=== PATIENT | male | born 1945 | race Caucasian/White ===

== ENCOUNTER 2018-04-30 15:45 | Inpatient (IN) | payer OTHER, MEDICARE ==
[~2018-04-30] VITALS: Ht 190.5 cm; Wt 76.4 kg
--- NOTE | ~2018-04-30 | PROC NOTE ---
[place], [place] PROCEDURE NOTE NAME: HOWARD ROMERO UNIT #: [id number] ROOM: 511 DOCTOR: GINA CAZARES MD,SHAMA BIRTHDATE: [birth year] DOS: 05/04/2018 PROCEDURE: Right-sided thoracentesis, ultrasound guidance. PREOPERATIVE DIAGNOSIS: Moderate to large right pleural effusion. POSTOPERATIVE DIAGNOSES: Removal of 1600 mL of mildly hemorrhagic pleural fluid from the right pleural space without any difficulty. COMPLICATIONS: None. Local anesthetic for the patient to use as lidocaine. PROCEDURE DESCRIPTION: Informed consent obtained. Thoracentesis was marked. Ultrasound, in the right posterior chest. The skin was cleaned with chlorhexidine solution. 1% lidocaine was administered in the skin and intercostal space. After administration of the local anesthetic after that the chlorhexidine solution. Sterile field was achieved. 1% lidocaine was administered in the skin intercostal space during administration of local anesthetic. The pleural space entered. Small amount of mildly hemorrhagic pleural fluid was aspirated in the syringe. After that small incision given in the skin, [place] thoracentesis catheter introduced through the incision into the right pleural space without any difficulty. A total of 1600 mL of pleural fluid was collected with the patient including the specimens for different testing. The procedure was well tolerated by the patient without difficulty. Chest x-ray done post-procedure was reviewed, marked reexpansion of the lung with resolution of pleural fluid without any pneumothorax. Small pleural fluid noted on the left side. Pleural fluid sent for all the appropriate testing. The testing will be monitored. No additional change in treatment will be necessary. SHAMA FUENTES MD CM:PROCNOTE:PROCEDURE NOTE [id number] SHAMA CAZARES MD
--- NOTE | ~2018-04-30 | PR ---
[place], [place] PROGRESS NOTE NAME: HOWARD ROMERO UNIT #: [id number] ROOM: 511 DOCTOR: GINA CAZARES MD,SHAMA BIRTHDATE: [birth year] DOS: 05/01/2018 SUBJECTIVE: The patient has been noted comfortable at this time, resting in the bed. He has been noted reduction in symptoms of shortness breath partially. The patient has a V/Q scan done this morning, was noted with multiple defects. The patient noted with intermittent probability for pulmonary embolism. He does have mild coughing without any sputum expectoration. Denies symptoms of chest pain or any hemoptysis. The patient denies symptoms of fever or chills. OBJECTIVE: VITAL SIGNS: The patient showed normal temperature, respiratory rate 20, heart rate 60, blood pressure 120/77. Pulse ox saturation on 8 liters canula 93% saturation. HEENT: Examination shows head was atraumatic. Eyes, nonicterus. NECK: Supple. CARDIOVASCULAR: S1, S2 is audible. LUNGS: The patient was noted without any wheezing or crackles. Breaths are noted mildly decreased bilaterally. ABDOMEN: Soft, nontender. EXTREMITIES: Shows bilateral 2+ pitting edema. LABORATORY DATA: The BMP for the patient, BUN 52, creatinine 1.86 noted today. CBC of the patient this morning were noted normal. The V/Q scan for the patient that was completed this morning was noted with multiple defect in the lungs bilaterally with finding consistent with intermediate probability for pulmonary embolism. IMPRESSION: 1. Possible pulmonary embolism should be considered and treated at the present time with current finding with abnormal V/Q scan for his reason of acute on chronic hypoxic respiratory failure with acute exacerbation of chronic obstructive pulmonary disease. 2. The patient with chronic anticoagulation noted Xarelto that might need to be changed to the full dose. Therapy or alternative treatment consideration. Bronchodilator to be continued. Titrate oxygen supplementation, maintain pulse oxygen 92% or greater. Usual care, other supportive therapy, plan of management care and other therapies. Additional treatment changes will be made for the patient based on progression of the illness. PLAN: Ultrasound of the lower extremity was ordered for this patient to assess the possibility of deep venous thrombosis because of persistent edema. [place], [place] PROGRESS NOTE NAME: HOWARD ROMERO UNIT #: [id number] ROOM: [facility] DOCTOR: SHAMA DILLARD MD BIRTHDATE: [birth year] SHAMA FUENTES MD CM:ARMINDA [phone] SHAMA CAZARES MD 05/30/18 0722 interface
--- NOTE | ~2018-04-30 | PR ---
[place], [place] PROGRESS NOTE NAME: HOWARD ROMERO UNIT #: [id number] ROOM: 511 DOCTOR: GINA CAZARES MD,SHAMA BIRTHDATE: [birth year] DOS: 05/04/2018 SUBJECTIVE: The patient was noted comfortable at this time, still noted symptoms of shortness of breath. Denies symptoms of chest pain or hemoptysis. Shortness breath still noted with exertion. He has been noted with a good amount of diuresis. Denies symptoms of abdominal pain, nausea or vomiting. Edema of the lower extremity has been slowly subsiding. Denies symptoms of headache or diplopia. Remaining systems were reviewed, they were noted all negative. OBJECTIVE: VITAL SIGNS: Normal temperature, respiratory rate 18, heart rate of 54-69, blood pressure 129/72-132/78. The pulse oxygen saturation was noted on 7 liters high flow nasal cannula 92% saturation. HEENT: Examination shows head was atraumatic. Eyes nonicterus. NECK: Supple. CARDIOVASCULAR: S1, S2 audible. LUNGS: Noted decreased breaths in lower portion of the lung bilaterally, greater in the right than the left side. ABDOMEN: Soft, nontender, and obese. EXTREMITIES: The patient noted resolving edema and resolution noted incomplete. VISIBLE SKIN: No lesions or rashes. MUSCULOSKELETAL: Without acute deformity. CENTRAL NERVOUS SYSTEM: Cranial nerves 2-12 intact. LABORATORY DATA: The renal function panel today, BUN 55, creatinine 1.61, glucose 102. CO2 37. CBC was noted essentially normal. IMPRESSION: The patient who has been currently noted with acute on chronic hypoxic respiratory failure, acute pulmonary embolism, congestive heart failure, bilateral pleural fluid, assessment for thoracentesis was planned for today. PLAN OF MANAGEMENT: The ultrasound of the chest was performed at bedside, moderate size right pleural fluid noted and small left pleural fluid. Thoracentesis will be done today. The anticoagulation remains on hold. Post-thoracentesis, the patient has been started on the treatment of acute pulmonary embolism with Eliquis 10 mg p.o. b.i.d. dosing. Other additional change in the treatment if necessary will be ordered after the completion of thoracentesis. Continue diuretic therapy. Other care, plan of management. [place], [place] PROGRESS NOTE NAME: HOWARD ROMERO UNIT #: [id number] ROOM: [facility] DOCTOR: SHAMA DILLARD MD BIRTHDATE: [birth year] SHAMA FUENTES MD CM:PNTRANS [phone] SHAMA CAZARES MD 05/04/18 1424 interface
--- NOTE | ~2018-04-30 | PR ---
[place], [place] PROGRESS NOTE NAME: HOWARD ROMERO UNIT #: [id number] ROOM: 511 DOCTOR: GINA CAZARES MD,SHAMA BIRTHDATE: [birth year] DOS: 05/02/2018 ADDENDUM Ultrasound of the lower extremity was ordered for this patient to assess the possibility of deep venous thrombosis because of persistent edema. SHAMA FUENTES MD CM:ARMINDA [phone] SHAMA CAZARES MD 05/02/18 2014 interface
--- NOTE | ~2018-04-30 | PR ---
[place], [place] PROGRESS [id number] UNIT #: [id number] ROOM: 511 DOCTOR: GINA CAZARES MD,SHAMA BIRTHDATE: [birth year] DOS: 05/05/2018 SUBJECTIVE: The patient was noted comfortable at this time, resting on the bed. He has a thoracentesis done yesterday was 1600 mL of pleural fluid were removed from the aeration of the right pleural space. He was continued on diuretic therapy. Reported reduction in symptoms of shortness of breath. No chest pain. Denies symptoms of abdominal pain, nausea or vomiting. Denies symptoms of any chest pain. The edema of the lower extremity continued to resolve progressively. Denies symptoms of headache or diplopia. Remaining systems were reviewed. They were noted all negative. He was started on the Eliquis yesterday loading dose for suspected current pulmonary embolism. OBJECTIVE: VITAL SIGNS: Normal temperature, respiratory rate 18, heart rate 70, blood pressure 128/67. The pulse oxygen saturation on 7 liters nasal cannula 96% saturation at the bedside. HEENT: Chronic obesity. NECK: Supple. CARDIOVASCULAR: S1, S2 is audible. LUNGS: Noted with improvement in air entry of the right lung. Decreased breath sounds on the left lung. Scattered crackles of the lungs. ABDOMEN: Soft and obese. EXTREMITIES: Resolving edema. LABORATORY DATA: Analysis of the pleural fluid yesterday was done. All the finding noted consistent with a transudative effusion. The pH of the fluid was noted at 7.38 with normal results. The CMP this morning, BUN 47, creatinine 1.54. CO2 39. The pleural fluid culture noted no bacterial growth. The Gram stain reported as many white blood cells, no organisms. The chest x-ray done this morning shows mild improvement in aeration of the lung on the right side with a small remaining pleural fluid on the left side. IMPRESSION: 1. Acute congestive heart failure with bilateral pleural fluid. Large fluid on the right side was removed, pending cytology. 2. Zzbux-ot-[id number] hypoxic respiratory failure. 3. Chronic obesity. 4. Obstructive sleep apnea disorder, nonadherence with the treatment. PLAN OF THERAPY: Continuation of the current plan of management at this time was in progress. Bronchodilators, oxygen supplementation. Continuation of the Eliquis for the pulmonary embolism management. Titrate oxygen supplementation, maintain pulse oxygen saturation 90% or greater. Continue diuretic therapy. Supportive care and other treatment plan of management. [place], [place] PROGRESS NOTE NAME: HOWARD ROMERO UNIT #: [id number] ROOM: [facility] DOCTOR: SHAMA DILLARD MD BIRTHDATE: [birth year] SHAMA FUENTES MD CM:PNTRANS [phone] SHAMA CAZARES MD 05/06/18 0449 interface
--- NOTE | ~2018-04-30 | EKG ---
[place], [place] ELECTROCARDIOGRAM REPORT NAME: HOWARD ROMERO UNIT #: [id number] ROOM: 511 DOCTOR: TATI DRAFT REPORT BIRTHDATE: [birth year] [facility] Test Date: 2018-04-30 Test Time: 16:03:15 Pat Name: HOWARD ROMERO Department: Room: 511 Gender: M [employer] Maker: Micaela Garber : 1945 Requested By: HIWOT CALVIN Order Number: [id number] Reading MD: Sangita Watt MD Measurements Intervals [place] Rate: 59 P: GA: QRS: 27 QRSD: 108 T: 31 QT: 462 QTc: 458 Interpretive Statements Atrial fibrillation Posterior infarct, age undetermined ST depression V1-V3, suggest recording posterior leads Baseline wander in lead(s) V3,V5 Electronically Signed On 05-03-2018 4:15:14 PDT by Sangita Watt MD CM:EKGRPT:ELECTROCARDIOGRAM REPORT [id number] HIWOT DUFFY DRAFT REPORT HIWOT CALVIN MD
--- NOTE | ~2018-04-30 | CON ---
[place], [place] REPORT OF CONSULTATION NAME: HOWARD ROMERO UNIT #: [id number] ROOM: 511 DOCTOR: GINA CAZARES MDSHAMA BIRTHDATE: [birth year] DOS: 05/01/2018 CONSULTATION REQUESTED BY: Hospitalist service. REASON FOR CONSULTATION: Assessment of respiratory failure. HISTORY OF PRESENT ILLNESS: A 72-year-old white male patient unknown to me. He has been followed up in the [facility]. The patient was seen in routine office follow up visit at the [facility] yesterday. He has been noted with pulse oxygen saturation only 60%. He was sent to the Emergency Room after starting the patient on oxygen supplementation by the EMS. The patient's oxygen saturation was noted in the 80s. The patient on 6 liters nasal cannula started nonrebreather mask. The patient to improve his oxygen saturation. The patient was noted with oxygen desaturation to take off his mask to eat. He has been reporting symptoms of shortness of breath that was occurring with exertion. The patient with progressive gradual weight gain and fluid retention. The patient does have mild cough without any sputum expectoration. Denies symptoms of chest pain. He does have symptoms of occasional wheezing. He stated that he brought his oxygen concentrator, which has been using at home up to 5 liters, which has been recently broke and he was in the process of purchasing a new oxygen concentrator. REVIEW OF SYSTEMS: CONSTITUTIONAL: Fatigue and tiredness noted without any symptoms of fever or chills. EYES: Denies any burning, redness, or tenderness. EARS, NOSE, THROAT SYMPTOMS: Denies sore throat, hoarseness, otalgia, postnasal drainage. CARDIOVASCULAR: Denies any angina pain noted with edema of the lower extremities. There are symptoms of pain. Denies symptoms of palpitations. GASTROINTESTINAL symptoms, dysphagia, nausea, vomiting, diarrhea, abdominal pain, hematemesis, melena, or hematochezia. SKIN: Denies abnormal lesions or rashes. CENTRAL NERVOUS SYSTEM: No dizziness, headache, diplopia, syncopal episodes. Remaining systems were reviewed with the patient, they were noted all negative. PAST MEDICAL HISTORY: 1. Reported by the patient with history of congestive heart failure. Systolic and diastolic dysfunction unknown. 2. History of pulmonary hypertension was also reported. Details were not known clearly by the patient. 3. New onset of atrial fibrillation noted on this admission. 4. Chronic obesity. 5. I am not sure for this patient about obstructive sleep apnea disorder, history was not noted clearly from the patient, but the patient reported possibility of sleep apnea disorder, but wished not to be treated with any of the machines. 6. History of chronic obstructive pulmonary disease. [place], [place] REPORT OF CONSULTATION NAME: HOWARD ROMERO UNIT #: [id number] ROOM: [facility] DOCTOR: SHAMA DILLARD MD BIRTHDATE: [birth year] 7. Gastroesophageal reflux. 8. Essential hypertension. 9. Chronic hypoxic respiratory failure, using oxygen supplementation up to 5 liters nasal cannula. PAST SURGICAL HISTORY: Reported with inguinal hernia repair. SOCIAL HISTORY: The patient lives at home by himself. Denies history of alcohol use, illicit drug use. Tobacco use noted, a pack of cigarettes a day; the patient discontinued a few years ago. The patient has history of chronic alcohol use. Denies history of illicit drugs. FAMILY HISTORY: The patient's father at the age of 70 due to complication of dementia. Mother at the age of 60 due to complication of COPD. HOME MEDICATIONS: Listed use of lisinopril, Symbicort, Ventolin HFA, omeprazole, Proventil HFA, nebulized bronchodilators albuterol sulfate, Lasix 20 mg daily, [place]-3 fish oil once a day, and aspirin 81 mg p.o. daily. DRUG ALLERGIES: Noted with no known drug allergies. PHYSICAL EXAMINATION: GENERAL: This is a 72-year-old white male, currently comfortably, sitting on the side of the bed without any acute distress. The patient's height was noted 6 feet 9 inches, weight of 295 pounds, BMI 36.8. VITAL SIGNS: Heart rate of 100 beats per minute to 45 beats per minute for the patient with atrial fibrillation, temperature noted normal, respiratory rate 18-20, heart rate of 140/87 to 121/78. The pulse oxygen saturation of the patient was recorded as 93% on 15 liter nasal cannula, currently on 8 liters high flow nasal cannula 92% saturation. HEENT: Examination shows head was atraumatic. Eyes nonicterus. NECK: Supple and obese. Severe decreased posterior pharyngeal space, high tongue base crowding of soft tissue structures. Oral mucosa was moist. CARDIOVASCULAR: S1, S2 audible. LUNGS: Decreased breath sounds noted in the lungs. Bilaterally scattered crackles of the lungs. The breaths are noted decreased more on the right than the left side. ABDOMEN: Noted severe chronic obesity. Bowel sounds present. It was nontender. EXTREMITIES: The patient noted with 2+ pitting edema in bilateral lower extremity. VISIBLE SKIN: No lesions or rashes. CENTRAL NERVOUS SYSTEM: Cranial nerves 2-12 intact. MUSCULOSKELETAL: Without any acute deformities. LABORATORY DATA: Arterial blood gas on 15 liters of oxygen, pH of 7.31, pCO2 of 53, pO2 of 98. The lactic acid 1.5 on admission yesterday. CBC yesterday on admission was essentially noted as normal CBC. CMP that was done yesterday, BUN 31, creatinine 1.54, remaining electrolytes normal. The troponin for the patient, which were done 3 sets was noted with troponin maximum 0.85 out of the [place], [place] REPORT OF CONSULTATION NAME: HOWARD ROMERO UNIT #: [id number] ROOM: [facility] DOCTOR: SHAMA DILLARD MD BIRTHDATE: [birth year] 3 sets. CBC for the patient on 05/01/2018 for patient remains still normal. BMP of the patient done this morning, glucose 147, BUN of 37, and creatinine 1.81. Potassium of 5.6. Calcium 8.1. Chest x-ray that was done one-view was only done was personally reviewed showed changes of congestive heart failure. Interstitial infiltration as well as area of atelectasis with elevation of right hemidiaphragm and pleural fluid on the right side cannot be completely excluded. IMPRESSION: 1. The patient will be currently admitted to the hospital noted with severe acute hypoxic respiratory failure with hypercarbia as well with chronic hypoxic respiratory failure as a result of superimposed congestive heart failure and pleural fluid with some area of atelectasis suspected and rule out chronic interstitial lung disease as well. 2. History reported was pulmonary hypertension, details unknown at the present time. 3. Morbid obesity. 4. Suspected strongly obstructive sleep apnea disorder, nonadherence with the treatment. Refusal of further treatment. 5. The patient with chronic obesity as well. 6. Past history of nicotine abuse. The patient's chronic obstructive pulmonary disease as well does not seem to have an acute exacerbation, mostly cardiac component. Would be considered for the current respiratory failure progression. 7. The patient with suspected acute kidney injury with possibly some chronic kidney disease with prerenal azotemia. PLAN OF MANAGEMENT: Ordered a PA lateral chest x-ray of the patient for tomorrow morning. Continue diuretic therapy. Continuation of the bronchodilators as well. Cardiology consultation has been already ordered in ED will follow the recommendation. Also obtain echocardiogram. Obtain the medical record for the patient from [facility] for this patient as well for the assessment of previous cardiac problem, pulmonary disease. Bronchodilator to be continued. The patient was also noted in atrial fibrillation with rapid ventricular response that has been currently treated with the medication including the patient was started on Xarelto. The dose of Solu-Medrol will be decreased 60 mg b.i.d. to only 30 mg daily at the present time. There was no need for any antibiotics as well. Additional treatment changes will be ordered for the patient based on progression of the illness. Monitor respiratory status closely if the patient found to have pleural fluid of significance of significant size then thoracentesis would be advised. The patient refused to use any kind of BiPAP for the patient for respiratory failure management. Titrate oxygen supplementation to maintain pulse oxygen saturation 90% or greater. The patient stated that he would like to be discharged within 24 hours and might not be staying in the hospital. Other plan of management and care for the patient to be continued as well. Usual care. Additional treatment changes will be ordered based on the progression of illness for this patient during this hospitalization. Also, monitor kidney function for the patient that the patient noted with acute on chronic kidney disease, most likely to diuretic possibly prerenal azotemia with congestive heart failure. [place], [place] REPORT OF CONSULTATION NAME: HOWARD ROMERO UNIT #: [id number] ROOM: 511 DOCTOR: SHAMA DILLARD MD BIRTHDATE: [birth year] SHAMA FUENTES MD CM:CONSTR:REPORT OF CONSULTATION 1141 05/30/18 0727 interface
--- NOTE | ~2018-04-30 | EKG ---
[place], [place] ELECTROCARDIOGRAM REPORT NAME: HOWARD ROMERO UNIT #: [id number] ROOM: 511 DOCTOR: TATI DRAFT REPORT BIRTHDATE: [birth year] [facility] Test Date: 2018-05-01 Test Time: 08:07:20 Pat Name: HOWARD ROMERO Department: Room: [facility] 2 Gender: M [employer] Operator: : 1945 Requested By: TUTU ROSADO Order Number: [id number] Reading MD: Sangita Watt MD Measurements Intervals [place] Rate: 41 P: AR: QRS: 20 QRSD: 116 T: QT: 463 QTc: 383 Interpretive Statements Atrial fibrillation Incomplete right bundle branch block R prominent in V2 suggestive posterior infarct age undetermined Borderline low voltage, extremity leads Baseline wander in lead(s) V1 Electronically Signed On 05-03-2018 4:17:48 PDT by Sangita Watt MD CM:EKGRPT:ELECTROCARDIOGRAM REPORT 0417 TUTU KOENIG DRAFT REPORT TUTU ROSADO DO
--- NOTE | ~2018-04-30 | PR ---
[place], [place] PROGRESS NOTE NAME: HOWARD ROMERO UNIT #: [id number] ROOM: 511 DOCTOR: SHAMA DILLARD MD BIRTHDATE: [birth year] DOS: 05/06/2018 SUBJECTIVE: The patient was noted comfortable at this time, resting in the bed. He had not been noted any ongoing acute respiratory complaints at this time. The patient was noted comfortable. He was noted very eager for the patient and wanting to be discharged home. Denies symptoms of chest pain. The patient has not been reporting any symptoms of fever or chills. Diuretic therapy for the patient was continued. PHYSICAL EXAMINATION: VITAL SIGNS: For the patient which are recorded showed normal temperature, respiratory rate 20, heart rate 65 and blood pressure 149/88. The pulse oxygen saturation patient on 7 liter nasal cannula was 91-92% saturation. HEENT: Examination shows head was atraumatic. Eyes nonicterus. NECK: Supple. CARDIOVASCULAR: S1, S2 is audible. LUNGS: Basilar crackles. ABDOMEN: Soft, obese and nontender. EXTREMITIES: The patient continued resolving edema of the lower extremities. LABORATORY DATA: BMP today: BUN 57 and creatinine 1.57. IMPRESSION: The patient with acute pulmonary embolism. The patient with resolving acute congestive heart failure, pleural fluid and respiratory failure gradually. PLAN OF THERAPY: From the pulmonary standpoint, the patient could be discharged home on home oxygen supplementation. The patient stated that he is normally using oxygen supplementation and maintaining his oxygen saturation about 88%-89%. Never had a pulse oxygen saturation more than that previously. Based on that, the patient could be discharged home oxygen 5-6 liter nasal cannula, probably should suffice. [facility] He will be finishing the total of 7 days of Eliquis. The patient loading dose since it started in this hospital and then could be started on Eliquis 5 mg p.o. b.i.d. for the medical and pulmonary embolism. [place], [place] PROGRESS NOTE NAME: HOWARD ROMERO UNIT #: [id number] ROOM: 511 DOCTOR: SHAMA DILLARD MD BIRTHDATE: [birth year] SHAMA FUENTES MD CM:PNTRANS [id number] SHAMA CAZARES MD 05/06/18 1040 interface
--- NOTE | ~2018-04-30 | PR ---
[place], [place] PROGRESS NOTE [id number] UN[facility] #: [id number] ROOM: 511 DOCTOR: GINA CAZARES MD,SHAMA BIRTHDATE: [birth year] DOS: 05/03/2018 SUBJECTIVE: The patient has been noted comfortable at this time. Shortness of breath was noted with partial reduction. Denies symptoms of chest pain or fever. The patient was still noted edema of the lower extremity, partially improved yesterday, but there was no pain. Denies symptoms of nausea, vomiting or diarrhea, but appeared to be quite comfortable this morning as compared with the previous day of assessment. Remaining systems were reviewed, they were noted all negative. OBJECTIVE: VITAL SIGNS: For the patient, which have been recorded showed normal temperature, respiratory rate 22, heart rate 48-84, respiratory rate recorded as 18-20, blood pressure 118/67-136/74. HEAD, EYES, EARS, NOSE, AND THROAT: Examination shows chronic moderate obesity. NECK: Supple. CARDIOVASCULAR SYSTEM: S1, S2 is audible. LUNGS: Noted without any wheezing or crackle. Breaths are noted decreased in the lower portion of the lungs bilaterally. ABDOMEN: Soft, nontender. Bowel sounds present. EXTREMITIES: Noted with 2+ pitting edema. MUSCULOSKELETAL: No deformity. CENTRAL NERVOUS SYSTEM: Cranial nerves 2-12 intact with the skin noted chronic changes of the lower extremities. There were no ulcers or lesions. LABORATORY DATA: Chest CT scan, which was ordered by the primary care team yesterday, was reviewed, shows bilateral pleural fluid, moderate size right and small to moderate, left pleural fluid area of compression atelectasis. Ultrasound of the lower extremity was also completed yesterday does not show any evidence of deep venous thrombosis. The PTT was noted as therapeutic today is 76. The patient has an echocardiogram that was done yesterday as well was reviewed with the findings reported by Dr. Watt, as left ventricle ejection fraction 55% at atrial fibrillation, right-sided pressure overload noted because flattening of the interventricular septum. Mild to moderate aortic stenosis with area of 1.8 cm2. Pulmonary artery pressure was also noted elevated as moderately. FINAL IMPRESSION: 1. The patient who has been currently noted with pulmonary embolism suspected strongly with concomitant ongoing congestive heart failure, diastolic dysfunction, and right-sided heart failure. 2. Moderate pulmonary hypertension with aortic stenosis as WHO classification at this time would be considered as a class 2, pulmonary hypertension related to the aortic valvular stenosis. 3. Suspected obstructive sleep apnea disorder. The patient does not wish to be treated for that as assessed in the history previously. 4. Chronic severe obesity as well. 5. Chronic obstructive pulmonary disease. 6. Atrial fibrillation. [place], [place] PROGRESS NOTE NAME: HOWARD ROMERO UNIT #: [id number] ROOM: 511 DOCTOR: GINA CAZARES MD,SHAMA BIRTHDATE: [birth year] PLAN OF MANAGEMENT: Continuation of the bronchodilators and oxygen supplementation and diuretic therapy. Assess patient tomorrow.. Discontinuation of the heparin for the assessment of pleural fluid thoracentesis to help improve his respiratory failure. The patient still requires 6-7 liters of oxygen, which is multifactorial, not only related to the pleural fluids. All other supportive therapy, plan of management, care plan, monitor electrolytes, BUN and creatinine, diuretic therapy. Usual care. SHAMA FUENTES MD CM:PNTRANS [id number] SHAMA CAZARES MD 05/30/18 0724 interface
[2018-04-30 15:46] VITALS: BP 152/85
[2018-04-30] MEDS ORDERED: ZESTRIL30 M3 PO (16:07)
[2018-04-30] MEDS ORDERED: SYMB160 INH (16:08)
[2018-04-30] MEDS ORDERED: VENTOLIN 02.5 MG/3 M INH (16:09)
[2018-04-30] MEDS ORDERED: PROVENTIL HFA6.7 GM INH (16:10)
[2018-04-30] MEDS ORDERED: OMEPRAZOLE20 M2 PO (16:11)
[2018-04-30] MEDS ORDERED: LASIX20 MG PO (16:11)
[2018-04-30] MEDS ORDERED: ASPIRIN CHEWABL81 MG PO (16:12)
[2018-04-30] MEDS ORDERED: FISH OIL CONC1000 M2 PO (16:12)
[2018-04-30] MEDS ORDERED: PHARMASSURE SA160 MG PO (16:12)
[2018-04-30 16:16] VITALS: BP 149/89
[2018-04-30 16:26] LABS: ABG BASE EXCESS -0.4 mmol/L (-2.0-2.0); ABG HCO3 26.2 mmol/l (22-26); ABG O2 SATURATION 95.1 % (95-97); ARTERIAL BLOOD GAS PCO2 53.4 mmHg (35-45); ARTERIAL BLOOD GAS PH 7.314 (7.35-7.45)
[2018-04-30 16:26] LABS: BASO % 0.4 % (0.0-1.0); EOS % 0.4 % (1.0-4.0); HEMOGLOBIN 15.3 g/dl (14.0-18.0); LYMPH % 12.9 % (27.0-41.0); MEAN CELL VOLUME 92.4 fl (80.0-94.0); MEAN CORPUSCULAR HGB 28.3 pg (27.0-31.0); MEAN CORPUSCULAR HGB CONC 30.6 g/dl (33.0-37.0); MEAN PLATELET VOLUME 11.1 fl (9.6-12.3); MONO # 0.8 10*3/uL (0.1-1.0); MONO % 9.8 % (3.0-9.0); NEUT # 6.1 10*3/uL (2.3-7.9); NEUT % 76.2 % (47.0-73.0); PLATELET COUNT AUTOMATED 168 10*3/uL (130-400); RED BLOOD COUNT 5.41 10*6/uL (4.50-5.90); RED CELL DISTRI WIDTH 15.2 % (0-14.5)
[2018-04-30 16:39] LABS: ACT PARTIAL THROMBO TIME 22.6 SECONDS (20.8-31.5); INTERNATIONAL NORM RATIO 1.2 (2.0-3.5)
[2018-04-30 16:42] LABS: ALBUMIN 3.3 gm/dl (3.1-4.5); CREATININE 1.54 mg/dL (0.70-1.30); POTASSIUM 4.7 mmol/L (3.5-5.1); TOTAL PROTEIN 6.8 gm/dL (6.4-8.2)
[2018-04-30 16:49] LABS: TROPONIN I 0.076 ng/ml (<0.045)
[2018-04-30 17:16] LABS: BILIRUBIN NEGATIVE (NEGATIVE); BLOOD TRACE-INTACT (NEGATIVE); CLARITY CLEAR (CLEAR); COLOR YELLOW (YELLOW); GLUCOSE NEGATIVE (NEGATIVE); KETONE NEGATIVE (NEGATIVE); LEUKO ESTERASE NEGATIVE (NEGATIVE); NITRITE NEGATIVE (NEGATIVE); PH 5.5 (5.0-9.0); SPECIFIC GRAVITY >= 1.030 (1.005-1.030); UROBILINOGEN 0.2 E.U./dl (0.2-1.0)
[2018-04-30 17:18] VITALS: BP 129/77
[2018-04-30 17:25] LABS: BACTERIA TRACE; EPITHELIAL CELLS 0-2; WBC 0-2 wbc/hpf (0-5)
[2018-04-30 18:00] VITALS: BP 140/87
[2018-04-30 20:00] VITALS: BP 129/84
[2018-05-01] VITALS: BP 106/53
[2018-05-01 06:50] LABS: BASO % 0.2 % (0.0-1.0); HEMATOCRIT 50.6 % (42.0-52.0); HEMOGLOBIN 15.1 g/dl (14.0-18.0); LYMPH # 0.6 10*3/uL (1.3-4.4); LYMPH % 11.6 % (27.0-41.0); MEAN CELL VOLUME 94.8 fl (80.0-94.0); MEAN CORPUSCULAR HGB 28.3 pg (27.0-31.0); MEAN CORPUSCULAR HGB CONC 29.8 g/dl (33.0-37.0); MEAN PLATELET VOLUME 11.4 fl (9.6-12.3); MONO # 0.2 10*3/uL (0.1-1.0); NEUT # 4.5 10*3/uL (2.3-7.9); PLATELET COUNT AUTOMATED 161 10*3/uL (130-400); RED BLOOD COUNT 5.34 10*6/uL (4.50-5.90); RED CELL DISTRI WIDTH 15.3 % (0-14.5); WHITE BLOOD COUNT 5.3 10*3/uL (4.8-10.8)
[2018-05-01 07:21] LABS: CREATININE 1.81 mg/dL (0.70-1.30); FREE T4 0.87 ng/dl (0.76-1.46); PHOSPHOROUS 5.2 mg/dL (2.5-4.9); POTASSIUM 5.6 mmol/L (3.5-5.1)
[2018-05-01 07:27] LABS: THYROID STIM HORMONE (HS) 1.38 uIU/ml (0.358-4.75)
[2018-05-01 08:00] VITALS: BP 122/78; BP 133/63
[2018-05-01 08:00] LABS: VITAMIN D, 25-HYDROXY 31.3 ng/mL (30-100)
[2018-05-01 16:00] VITALS: BP 128/72
[2018-05-01 20:00] VITALS: BP 142/76
[2018-05-02] VITALS: BP 103/62
[2018-05-02 07:20] LABS: BASO % 0.1 % (0.0-1.0); EOS % 0.1 % (1.0-4.0); HEMATOCRIT 51.1 % (42.0-52.0); HEMOGLOBIN 15.1 g/dl (14.0-18.0); LYMPH # 1.2 10*3/uL (1.3-4.4); LYMPH % 13.4 % (27.0-41.0); MEAN CELL VOLUME 94.3 fl (80.0-94.0); MEAN CORPUSCULAR HGB 27.9 pg (27.0-31.0); MEAN CORPUSCULAR HGB CONC 29.5 g/dl (33.0-37.0); MEAN PLATELET VOLUME 11.1 fl (9.6-12.3); MONO # 0.9 10*3/uL (0.1-1.0); MONO % 9.6 % (3.0-9.0); NEUT # 6.8 10*3/uL (2.3-7.9); NEUT % 76.5 % (47.0-73.0); PLATELET COUNT AUTOMATED 170 10*3/uL (130-400); RED BLOOD COUNT 5.42 10*6/uL (4.50-5.90); RED CELL DISTRI WIDTH 15.4 % (0-14.5); WHITE BLOOD COUNT 8.9 10*3/uL (4.8-10.8)
[2018-05-02 07:39] LABS: CREATININE 1.86 mg/dL (0.70-1.30); PHOSPHOROUS 5.1 mg/dL (2.5-4.9); POTASSIUM 4.5 mmol/L (3.5-5.1)
[2018-05-02 08:00] VITALS: BP 120/77
[2018-05-02 12:00] VITALS: BP 128/77
[2018-05-02 16:00] VITALS: BP 142/75
[2018-05-02 20:00] VITALS: BP 136/74
[2018-05-03 01:38] VITALS: BP 118/67
[2018-05-03 08:20] LABS: ALBUMIN 3.6 gm/dl (3.1-4.5); CREATININE 1.66 mg/dL (0.70-1.30); PHOSPHOROUS 4.7 mg/dL (2.5-4.9); POTASSIUM 4.8 mmol/L (3.5-5.1)
[2018-05-03 12:00] VITALS: BP 119/83
[2018-05-03 16:00] VITALS: BP 139/74
[2018-05-03 20:00] VITALS: BP 124/55
[2018-05-04] VITALS: BP 129/72
[2018-05-04 06:26] LABS: BASO % 0.2 % (0.0-1.0); EOS % 0.2 % (1.0-4.0); HEMATOCRIT 49.3 % (42.0-52.0); HEMOGLOBIN 14.8 g/dl (14.0-18.0); LYMPH # 1.1 10*3/uL (1.3-4.4); LYMPH % 11.8 % (27.0-41.0); MEAN CELL VOLUME 93.2 fl (80.0-94.0); MEAN PLATELET VOLUME 11.3 fl (9.6-12.3); MONO # 1.1 10*3/uL (0.1-1.0); MONO % 11.5 % (3.0-9.0); NEUT # 7.3 10*3/uL (2.3-7.9); PLATELET COUNT AUTOMATED 187 10*3/uL (130-400); RED BLOOD COUNT 5.29 10*6/uL (4.50-5.90); RED CELL DISTRI WIDTH 15.1 % (0-14.5); WHITE BLOOD COUNT 9.6 10*3/uL (4.8-10.8)
[2018-05-04 06:47] LABS: ALBUMIN 3.4 gm/dl (3.1-4.5); CREATININE 1.61 mg/dL (0.70-1.30); PHOSPHOROUS 4.9 mg/dL (2.5-4.9); POTASSIUM 4.7 mmol/L (3.5-5.1)
[2018-05-04 08:00] VITALS: BP 132/78
[2018-05-04 12:00] VITALS: BP 141/81
[2018-05-04 12:21] LABS: BODY FLUID WBC 822 /uL
[2018-05-04 13:22] LABS: BF LYMPHOCYTES 35 %; BF MACROPHAGES 58 %; BF MESOTHELIALS 1 %; BF NEUTROPHILS 6 %
[2018-05-04 16:00] VITALS: BP 135/96
[2018-05-04 20:00] VITALS: BP 131/62
[2018-05-05] VITALS: BP 124/72
[2018-05-05 06:45] LABS: ALBUMIN 3.5 gm/dl (3.1-4.5); CREATININE 1.54 mg/dL (0.70-1.30); POTASSIUM 4.7 mmol/L (3.5-5.1); TOTAL PROTEIN 7.2 gm/dL (6.4-8.2)
[2018-05-05 08:00] VITALS: BP 122/70
[2018-05-05 12:00] VITALS: BP 128/67
[2018-05-05 16:00] VITALS: BP 136/79
[2018-05-05 20:00] VITALS: BP 126/70; BP 136/68
[2018-05-06] VITALS: BP 129/74
[2018-05-06 07:13] LABS: CREATININE 1.57 mg/dL (0.70-1.30); POTASSIUM 4.7 mmol/L (3.5-5.1)
[2018-05-06 08:00] VITALS: BP 149/88
[2018-05-06] MEDS ORDERED: LASIX40 MG PO (10:46)
[2018-05-06] MEDS ORDERED: XARELTO1 EACH PO (10:46)
== END 2018-05-06 14:19 | disposition home or self-care (01) | DRG 291 ==
LOC: ED 15:45 → 5E 17:08 → EDHOLD 17:08 → 5E 17:28
PROVIDERS: Emergency Medicine; Internal Medicine; Internal Medicine Critical Care Medicine; Student in an Organized Health Care Education/Training Program
PROC: 0W993ZZ Drainage of Right Pleural Cavity, Percutaneous Approach (ICD-10-PCS; principal; 2018-05-04)
DX: I13.0 Hypertensive heart and chronic kidney disease with heart failure and stage 1 through stage 4 chronic kidney disease, or unspecified chronic kidney disease (principal); I50.33 Acute on chronic diastolic (congestive) heart failure; J96.22 Acute and chronic respiratory failure with hypercapnia; J96.21 Acute and chronic respiratory failure with hypoxia; N17.0 Acute kidney failure with tubular necrosis; I26.99 Other pulmonary embolism without acute cor pulmonale; J44.1 Chronic obstructive pulmonary disease with (acute) exacerbation; E44.0 Moderate protein-calorie malnutrition; E87.2 Acidosis; D68.69 Other thrombophilia; J84.9 Interstitial pulmonary disease, unspecified; J90 Pleural effusion, not elsewhere classified; R74.8 Abnormal levels of other serum enzymes; I48.91 Unspecified atrial fibrillation; K21.9 Gastro-esophageal reflux disease without esophagitis; I27.20 Pulmonary hypertension, unspecified; G47.33 Obstructive sleep apnea (adult) (pediatric); N18.3 Chronic kidney disease, stage 3 (moderate); I08.2 Rheumatic disorders of both aortic and tricuspid valves; Z66 Do not resuscitate; Z51.5 Encounter for palliative care; I25.10 Atherosclerotic heart disease of native coronary artery without angina pectoris; E66.01 Morbid (severe) obesity due to excess calories; E83.39 Other disorders of phosphorus metabolism; R00.1 Bradycardia, unspecified; Z87.891 Personal history of nicotine dependence; Z78.9 Other specified health status; Z99.81 Dependence on supplemental oxygen; Z79.899 Other long term (current) drug therapy; Z79.82 Long term (current) use of aspirin; Z83.6 Family history of other diseases of the respiratory system; Z82.0 Family history of epilepsy and other diseases of the nervous system; Z79.01 Long term (current) use of anticoagulants; Z68.36 Body mass index [BMI] 36.0-36.9, adult

== ENCOUNTER → 2018-07-29 | Outpatient (CLI) | payer OTHER, MEDICARE ==
[~2018-07-29] MED LIST: ASPIRIN CHEWABL81 MG PO; FISH OIL CONC1000 M2 PO; LASIX20 MG PO; LASIX40 MG PO; OMEPRAZOLE20 M2 PO; PHARMASSURE SA160 MG PO; PROVENTIL HFA6.7 GM INH; SYMB160 INH; VENTOLIN 02.5 MG/3 M INH; XARELTO1 EACH PO; ZESTRIL30 M3 PO
[2018-07-29 11:30] LABS: CREATININE 2.32 mg/dL (0.70-1.30); POTASSIUM 5.7 mmol/L (3.5-5.1)
== END | disposition home or self-care (01) ==
LOC: LAB 11:02
PROVIDERS: Internal Medicine
DX: E87.5 Hyperkalemia (principal)

== ENCOUNTER → 2019-09-02 | Day surgery (SDC) | payer MEDICARE ==
[~2019-09-02] MED LIST changes: +ALLOPURINOL100 MG PO; +AMLODIPINE BESYL5 MG PO; +BUMETANIDE2 MG PO; +LIPITOR20 MG PO
[2019-09-02 08:24] VITALS: BP 114/75
[2019-09-02 09:59] VITALS: BP 128/74
[2019-09-02 10:32] LABS: BODY FLUID WBC 516 /uL
[2019-09-02 11:30] LABS: BF LYMPHOCYTES 75 %; BF MACROPHAGES 23 %; BF MONOCYTES 1 %; BF NEUTROPHILS 1 %
== END | disposition home or self-care (01) ==
PROVIDERS: Internal Medicine Critical Care Medicine
DX: J90 Pleural effusion, not elsewhere classified (principal); I10 Essential (primary) hypertension; Z87.891 Personal history of nicotine dependence

== ENCOUNTER → 2019-09-05 | Outpatient (CLI) | payer MEDICARE ==
[~2019-09-05] MED LIST changes: +DULCOLAX STOOL100 M1 PO; +MAGNESIUM250 M1 PO; +VITAMIN C250 M2 PO; +VITAMIN D250 MCG PO; +XARELTO20 M1 PO
== END | disposition home or self-care (01) ==
LOC: CT 12:12
DX: I25.10 Atherosclerotic heart disease of native coronary artery without angina pectoris (principal); J90 Pleural effusion, not elsewhere classified

== ENCOUNTER 2019-09-11 15:41 | Inpatient (IN) | payer MEDICARE ==
[~2019-09-11] VITALS: Ht 190.5 cm; Wt 114.3 kg
[~2019-09-11 15:41] MED LIST changes: -DULCOLAX STOOL100 M1 PO; -MAGNESIUM250 M1 PO; -VITAMIN C250 M2 PO; -VITAMIN D250 MCG PO; -XARELTO20 M1 PO
[2019-09-11 16:02] VITALS: BP 126/71
[2019-09-11 16:12] LABS: BASO % 0.4 % (0.0-1.0); EOS # 0.1 10*3/uL (0.0-0.4); EOS % 0.7 % (1.0-4.0); HEMATOCRIT 35.4 % (42.0-52.0); HEMOGLOBIN 9.6 g/dl (14.0-18.0); LYMPH # 0.7 10*3/uL (1.3-4.4); LYMPH % 7.7 % (27.0-41.0); MEAN CELL VOLUME 80.6 fl (80.0-94.0); MEAN CORPUSCULAR HGB 21.9 pg (27.0-31.0); MEAN CORPUSCULAR HGB CONC 27.1 g/dl (33.0-37.0); MEAN PLATELET VOLUME 9.7 fl (9.6-12.3); MONO # 0.9 10*3/uL (0.1-1.0); MONO % 9.6 % (3.0-9.0); NEUT # 7.2 10*3/uL (2.3-7.9); NUCLEATED RED BLOOD CELL 0.4 % (0.0-0.0); PLATELET COUNT AUTOMATED 332 10*3/uL (130-400); RED BLOOD COUNT 4.39 10*6/uL (4.50-5.90); RED CELL DISTRI WIDTH 17.8 % (0-14.5); WHITE BLOOD COUNT 8.9 10*3/uL (4.8-10.8)
[2019-09-11 16:23] LABS: ACT PARTIAL THROMBO TIME 35.3 SECONDS (20.0-32.1); INTERNATIONAL NORM RATIO 1.9 (2.0-3.5)
[2019-09-11 16:31] LABS: ALBUMIN 3.1 gm/dl (3.1-4.5); CREATININE 1.64 mg/dL (0.70-1.30); POTASSIUM 4.6 mmol/L (3.5-5.1); TOTAL PROTEIN 7.2 gm/dL (6.4-8.2)
[2019-09-11 16:42] LABS: TROPONIN I 0.107 ng/ml (<0.045)
--- NOTE | 2019-09-11 17:04 | NUR ---
PT REFUSED NRB TO BE ABOVE 10L. PT WAS ALSO STATING THAT HE WOULD TAKE THE MASK OFF AND THROW IT IF THE MASK WOULND'T STOP RIDING UP HIS FACE. IT WAS EXPLAINED THAT THE NRB NEEDED TO STAY UNDER HIS CHIN IN ORDER FOR THE MASK TO STAY IN PLACE. PT IRRITATED AND WANTED NC TO BE PUT ON. NC WAS PUT ON AT 6L AND O2 STATS DROPPED TO HIGH 70'S. IT WAS EXPLAINED THAT THE NRB NEEDED TO BE PUT BACK ON IN ORDER TO RAISE HIS OXYGEN. PT AGREED BUT STATED HE WOULD TEAR MASK OFF IF OXYGEN WAS SET TO ANYTHING ABOVE 10L. PT WAS OFFERED A BIPAP AND REFUSED. O2 STAT AT THIS TIME IS 93% ON NRB 10L
[2019-09-11 18:05] VITALS: BP 134/87
--- NOTE | 2019-09-11 18:56 | NUR ---
REPORT GIVEN TO NURSE IN ICCU. PT GOING TO BED 4
--- NOTE | 2019-09-11 19:03 | NUR ---
PT AWAITING TO GO TO ICCU.
[2019-09-11 20:00] VITALS: BP 141/86
[2019-09-11 20:15] VITALS: BP 141/86
--- NOTE | 2019-09-11 20:15 | NUR ---
A 74, admitted to ICCU, under the services of AMADO Munoz DO with a diagnosis of ACUTE RESPIRATORY FAILURE WITH HYPOXIA, PLEURAL EFUSION. Chief complaint is SOB. Patient arrived via stretcher from ER. Monitor applied. Initial assessment completed. Vital signs taken and recorded. AMADO MUNOZ DO notified of admission to the unit. Orders received. See assessment for past medical history, medications and allergies. Patient and/or family oriented to unit. [facility] ICCU visitation policy reviewed. Clothing/patient valuable form completed. KG SALAZAR
[2019-09-11] MEDS ORDERED: DULCOLAX STOOL100 M1 PO (20:35)
[2019-09-11] MEDS ORDERED: MAGNESIUM250 M1 PO (20:36)
[2019-09-11] MEDS ORDERED: XARELTO20 M1 PO (20:42)
[2019-09-11] MEDS ORDERED: VITAMIN C250 M2 PO (20:42)
[2019-09-11] MEDS ORDERED: VITAMIN D250 MCG PO (20:44)
[2019-09-12] VITALS: BP 123/73
[2019-09-12 00:37] LABS: BILIRUBIN NEGATIVE (NEGATIVE); BLOOD NEGATIVE (NEGATIVE); CLARITY CLEAR (CLEAR); COLOR YELLOW (YELLOW); GLUCOSE NEGATIVE (NEGATIVE); KETONE NEGATIVE (NEGATIVE); LEUKO ESTERASE NEGATIVE (NEGATIVE); NITRITE NEGATIVE (NEGATIVE); UROBILINOGEN 0.2 E.U./dl (0.2-1.0)
[2019-09-12 00:39] LABS: FINE GRANULAR CAST 0-2; RBC 0-2 rbc/hpf (0-2); WBC 0-2 wbc/hpf (0-5)
--- NOTE | 2019-09-12 02:14 | NUR ---
09/11/19 2130 PT ON 8 L NC. SPO2 81% O2 CHANGED TO 10 L HFNC. SPO2 INCREASED TO 88-90%. RESP REGULAR AND UNLABORED.
--- NOTE | 2019-09-12 02:18 | NUR ---
09/11/19 2230 O2 CHANGED TO OPTI FLOW OF 75% AND 60 LPM. SPO2 WAS DROPPING LOW 76% PER RN. SPO2 RANGING FROM 88-97% RESP REGULAR AND UNLABORED.
[2019-09-12 04:00] VITALS: BP 105/66
[2019-09-12 06:09] LABS: BASO % 0.4 % (0.0-1.0); EOS # 0.1 10*3/uL (0.0-0.4); EOS % 1.8 % (1.0-4.0); HEMATOCRIT 34.4 % (42.0-52.0); HEMOGLOBIN 9.4 g/dl (14.0-18.0); LYMPH % 12.7 % (27.0-41.0); MEAN CELL VOLUME 80.6 fl (80.0-94.0); MEAN CORPUSCULAR HGB CONC 27.3 g/dl (33.0-37.0); MONO # 0.9 10*3/uL (0.1-1.0); MONO % 11.2 % (3.0-9.0); NEUT # 5.6 10*3/uL (2.3-7.9); NEUT % 73.4 % (47.0-73.0); NUCLEATED RED BLOOD CELL 0.4 % (0.0-0.0); PLATELET COUNT AUTOMATED 331 10*3/uL (130-400); RED BLOOD COUNT 4.27 10*6/uL (4.50-5.90); RED CELL DISTRI WIDTH 18.2 % (0-14.5); WHITE BLOOD COUNT 7.7 10*3/uL (4.8-10.8)
[2019-09-12 06:10] LABS: ALBUMIN 2.8 gm/dl (3.1-4.5); CREATININE 1.6 mg/dL (0.70-1.30); PHOSPHOROUS 4.6 mg/dL (2.5-4.9); POTASSIUM 4.3 mmol/L (3.5-5.1)
[2019-09-12 08:00] VITALS: BP 110/48
--- NOTE | 2019-09-12 08:15 | NUR ---
Occupational therapy orders and nursing screen received. Will follow up with patient for completion of an OT eval. Thank you. Tati Zacarias, OTR/L
--- NOTE | 2019-09-12 08:25 | NUR ---
PHYSICAL THERAPY Screen and PT eval received will follow, thank you Rosalba Pate PT
--- NOTE | 2019-09-12 09:15 | NUR ---
DR PATEL IN TO SEE PT. KHOA, ASSEMBLY INSTRUCTIONS WRITER., PERFORMING ECHO AT THIS TIME.
--- NOTE | 2019-09-12 09:30 | NUR ---
DR FUENTES IN TO SEE PT. DISCUSSED PT'S CONDITION AND PLAN OF CARE WITH PT. PT AGREED FOR CHEST TUBE INSERTION.
--- NOTE | 2019-09-12 10:00 | NUR ---
DR FUENTES PLACED A RIGHT POSTERIOR #20 SERBIAN CHEST TUBE AFTER INFORMED CONSENT RECEIVED FROM PT. PT TOLERATED PROCEDURE WELL. CHEST TUBE PLACED TO WATER SEAL X1 HOUR AND THEN WILL BE PLACED ON 20CM SUCTION. OVER 1 LITER OF PLEURAL FLUID IN SUCTION TRAP. POX 95% ON 75% OPTI-KATHIE. WILL CONTINUE TO MONITOR PT.
--- NOTE | 2019-09-12 10:10 | NUR ---
DR BRUSH SPOMikieW WITH PT R/T POSSIBLE TRANSFER TO [place]. PT STATES HE NEEDS TO SPEAK WITH HIS BEFORE HE WOULD SAY YES TO TRANSFER TO [place]. PT
--- NOTE | 2019-09-12 10:30 | NUR ---
PT UP TO BEDSIDE TO URINATE. PT'S POX DROPPING INTO 70% RANGE WITH ACTIVITY. PT REFUSING ASSISTACE AND STATES HE HAS TO STAND TO URINATE. PT STATES "I WILL BE FINE...JUST GIVE ME A MINUTE." PT'S POX DID INCREASE TO 87%. WILL CONTINUE TO MONITOR PT.
--- NOTE | 2019-09-12 11:00 | NUR ---
CHEST TUBE PLACED TO 20CM SUCTION. PT DENIES COMPLAINTS AT PRESENT TIME.
--- NOTE | 2019-09-12 11:00 | NUR ---
Switchbox Assembler in to talk to patient. Patient states lives at home with his . There are 6 steps in the home. Physician: Dr. Jha Pharmacy: [place] [facility] Home health services: none Patient's level of ADLs: MINIMAL ASSIST Patient has working utilities: yes DME: walker, cane, O2 @ 5L nc, portable O2 tanks, nebulizer, O2 supplier [employer] Follow-up physician's appointment after d/c: will be made by the hospitalist nurse director upon discharge Does patient want to access PORTAL?: no Discharge plan discussed with patient and his who is at his bedside. He lives at home with his . He is independent in his ADLs and uses either a walker or cane for ambulation. Discussed short term SNF and home health care services and he refuses both. Discharge plan undecided at this time. His will provide transportation on discharge. JB HADDAD
--- NOTE | 2019-09-12 11:30 | NUR ---
PT'S IN TO VISIT WITH HIM. DR BRUSH UPDATED HER ON PT'S CONDITION AND PLAN OF CARE. DR BRUSH DISCUSSED TRANSFER TO [place] WITH PT AND PT'S . PT AGREED FOR TRANSFER. DR BRUSH CALLED [place] TO MAKE ARRANGEMENTS FOR TRANSFER.
[2019-09-12 12:00] VITALS: BP 102/62
--- NOTE | 2019-09-12 12:20 | NUR ---
PT.S O2 TITRATED TO 8L HFNC. SPO2 90% HR 66 RR 18. RN NOTIFIED. CONTINUE TO MONITOR.
--- NOTE | 2019-09-12 13:20 | NUR ---
REP. THERAPIST TITRATED PT TO 8 LITER HIGH FLOW OXYGEN ABOUT AN HOUR AGO. POX HAD BEEN RANGING 87-90%. PT UP TO BEDSIDE TO URINATE. POX 70%. OXYGEN TITRATED TO 10 LITERS AND RESPITORY THERAPIST ON HIS WAY TO EVALUATE PT.
--- NOTE | 2019-09-12 13:20 | NUR ---
SPO2 DROPPED TO 82% ON 10L HFNC. PT. PLACED BACK ON OPTIFLOW. FIO2 75% FLOW 50LPM. SPO2 RECOVERED TO 92%.
--- NOTE | 2019-09-12 13:25 | NUR ---
PT NOW O OPTI-FLOW 50 LITERS 75% FIO2. POX UP 91%. CHEST TUBE TO 20CM SUCTION. 1450CC IN SUCTION TRAP.
--- NOTE | 2019-09-12 15:21 | NUR ---
[facility] HEADER OPERATOR CALLED THAT THEY HAVE A BED FOR THE PT. WE ARE TO [facility] TRANSPORT. PT'S SPOUSE UPDATED.
--- NOTE | 2019-09-12 15:37 | NUR ---
Spoke to Alexis at the CT intake center. Patient is 50% service connected. Discussed the patient needing transferred and if they are able to take patient. Spoke to Nellie at the [facility] regarding patient being inpatient and needing to be transferred to a higher level of care. She discussed with her cistern room working supervisor who stated transfer the patient where they need to be transferred. Informed it would be Maria L in [place]. She states in order for the CT to continue payment [facility] Sepulveda notified. He will pass message along to nurse. Faxed clinical to [phone].
--- NOTE | 2019-09-12 15:39 | NUR ---
MEDICATED PT PER PRN ORDER WITH NORCO FOR C/O PAIN 8/10 ON PAIN SCALE AT CHEST TUBE INSERTION SITE.
[2019-09-12 16:00] VITALS: BP 136/77
--- NOTE | 2019-09-12 16:10 | NUR ---
PT STATES PAIN IS NOW A 6/10 ON PAIN SCALE.
--- NOTE | 2019-09-12 17:03 | NUR ---
PT TRANSFERED TO [facility] VIA [facility]. PT REPORT GIVEN TO RECEIVING NURSE AT [facility].
--- NOTE | 2019-09-13 07:32 | NUR ---
[facility],
== END 2019-09-12 17:04 | disposition short-term general hospital (02) | DRG 189 ==
LOC: ED 15:41 → EDHOLD 17:26 → ICCU 18:41
PROVIDERS: Emergency Medicine; Student in an Organized Health Care Education/Training Program; ADMIT Internal Medicine
PROC: 0W9930Z Drainage of Right Pleural Cavity with Drainage Device, Percutaneous Approach (ICD-10-PCS; principal; 2019-09-12)
DX: J96.21 Acute and chronic respiratory failure with hypoxia (principal); N17.0 Acute kidney failure with tubular necrosis; I50.33 Acute on chronic diastolic (congestive) heart failure; I13.0 Hypertensive heart and chronic kidney disease with heart failure and stage 1 through stage 4 chronic kidney disease, or unspecified chronic kidney disease; J84.9 Interstitial pulmonary disease, unspecified; E44.0 Moderate protein-calorie malnutrition; J91.8 Pleural effusion in other conditions classified elsewhere; I24.8 Other forms of acute ischemic heart disease; I50.813 Acute on chronic right heart failure; I27.20 Pulmonary hypertension, unspecified; K21.9 Gastro-esophageal reflux disease without esophagitis; D64.9 Anemia, unspecified; I48.91 Unspecified atrial fibrillation; E83.41 Hypermagnesemia; D72.810 Lymphocytopenia; Z51.5 Encounter for palliative care; N18.3 Chronic kidney disease, stage 3 (moderate); R73.9 Hyperglycemia, unspecified; Z66 Do not resuscitate; J44.9 Chronic obstructive pulmonary disease, unspecified; M10.9 Gout, unspecified; E66.9 Obesity, unspecified; I49.8 Other specified cardiac arrhythmias; E78.5 Hyperlipidemia, unspecified; Z83.6 Family history of other diseases of the respiratory system; Z86.711 Personal history of pulmonary embolism; Z81.8 Family history of other mental and behavioral disorders; Z79.01 Long term (current) use of anticoagulants; Z79.82 Long term (current) use of aspirin; Z68.31 Body mass index [BMI] 31.0-31.9, adult